=== PATIENT | male | born 1945 | race American Indian/Alaskan Native ===

== ENCOUNTER 2016-08-12 12:49 | Outpatient (CLI) | payer MEDICARE, OTHER ==
[2016-08-12 13:27] LABS: Albumin 3.7 g/dL (3.9-5); Calcium 8.7 mg/dL (8.4-10.2); Phosphorous 2.5 mg/dL (2.5-4.5); Potassium 3.7 mmol/L (3.6-5.0)
[2016-08-12 13:49] LABS: Bilirubin,Urine NEG (Negative); Blood,Urine NEG (Negative); Ketones,Urine NEG (Negative); Leukocyte Esterase,Urine NEG (Negative); Mucus,Urine FEW /HPF; Nitrite,Urine NEG (Negative); RBC,Urine < 1.0 /HPF (0.0-6.0); Urobilinogen,Urine < 2.0 mg/dL (<2.0)
== END 2016-08-12 12:50 | disposition home or self-care (01) ==
LOC: LAB 12:49
PROVIDERS: ATTEND Internal Medicine Nephrology
DX: I12.9 Hypertensive chronic kidney disease with stage 1 through stage 4 chronic kidney disease, or unspecified chronic kidney disease (principal); N18.3 Chronic kidney disease, stage 3 (moderate); Z72.0 Tobacco use
CPT/HCPCS: 36415; 80048; 81001; 82040; 82043; 84100

== ENCOUNTER 2017-09-04 13:11 | Outpatient (CLI) | payer MEDICARE, OTHER ==
[2017-09-04 13:49] LABS: Hematocrit 32.9 % (35.5-45.6); Hemoglobin 10.3 gm/dl (11.8-15.2); Mean Corpuscular HGB Conc 31 % (32-34); Mean Corpuscular Volume 80 fl (84-94); Platelet Count 262 K/mm3 (140-440)
[2017-09-04 13:51] LABS: Mean Corpuscular Hemoglobin 25 pg (28-32); Red Cell Distribution Width 20.5 % (13.2-15.2)
[2017-09-04 13:59] LABS: Albumin 3.8 g/dL (3.9-5)
[2017-09-07 18:55] LABS: Bilirubin,Urine NEG (Negative); Blood,Urine NEG (Negative); Color,Urine Yellow (Yellow); Mucus,Urine FEW /HPF
[2017-09-07 19:14] LABS: Creatinine,Urine 340.4 mg/dL (0.1-20.0); Protein/Creatinine Ratio,Urine 0.22
== END 2017-09-04 13:12 | disposition home or self-care (01) ==
LOC: LAB 13:11
PROVIDERS: ATTEND Internal Medicine Nephrology
DX: I12.9 Hypertensive chronic kidney disease with stage 1 through stage 4 chronic kidney disease, or unspecified chronic kidney disease (principal); N18.3 Chronic kidney disease, stage 3 (moderate)
CPT/HCPCS: 36415; 80048; 81001; 82040; 82570; 84100; 84156; 85027